=== PATIENT | male | born 1975 | race Caucasian/White ===

== ENCOUNTER 2019-03-17 13:33 | Emergency (ER) | payer OTHER ==
[2019-03-17 13:51] VITALS: BP 120/72; PULSE 86; TEMP 98; BMI 33.3
--- NOTE | 2019-03-17 14:50 | EKG ---
Test Reason : Blood Pressure : / mmHG Vent. Rate : 076 BPM Atrial Rate : 076 BPM P-R Int : 150 ms QRS Dur : 106 ms QT Int : 376 ms P-R-T Axes : 058 078 024 degrees QTc Int : 423 ms POOR DATA QUALITY, INTERPRETATION MAY BE ADVERSELY AFFECTED NORMAL SINUS RHYTHM NORMAL ECG NO PREVIOUS ECGS AVAILABLE Confirmed by SKYLER ARANGO MD ([id number]) on 03/17/2019 2:50:08 PM Referred By: Confirmed By:SKYLER ARANGO MD
[2019-03-17] MEDS ORDERED: ACETAMINOPHEN 325 MG TABLET (FP) PO ONE (16:46)
[2019-03-17] MEDS ORDERED: METHOCARBAMOL 750 MG TABLET PO ONE (17:00)
[2019-03-17] MEDS ORDERED: ACETAMINOPHEN 325 MG TABLET (FP) ONE (17:29)
[2019-03-17] MEDS ORDERED: METHOCARBAMOL 500 MG TABLET ONE (17:29)
[2019-03-17] MEDS ORDERED: METHOCARBAMOL 500 MG TABLET PO ONE (17:32)
[2019-03-17 17:59] LABS: BASO % 0.7 % (0-2.0); EOS % 3.5 % (0-4.5); HEMATOCRIT 43.1 % (35.4-49); HEMOGLOBIN 14.6 GM/dL (11.7-16.9); LYMPH % 32.7 % (8-40); MCH 30.4 pg (25.7-33.7); MEAN CELL VOLUME 89.4 fl (80-96); MEAN PLT VOLUME 7.4 fl (7.5-11.1); MONO % 6.9 % (3.8-10.2); NEUT % 56.2 % (42.8-82.8); PLATELET COUNT 246 K/MM3 (134-434); RBC 4.82 M/mm3 (4.00-5.60); RDW 13.1 % (11.9-15.9); WHITE BLOOD COUNT 6.7 K/mm3 (4.0-10.0)
[2019-03-17 18:20] LABS: ALBUMIN 3.8 g/dl (3.4-5.0); ALK PHOS 82 U/L (45-117); ANION GAP 5 MMOL/L (8-16); BILIRUBIN,TOTAL 0.6 mg/dL (0.2-1); BLOOD UREA NITROGEN 14.8 mg/dL (7-18); CALCIUM 8.8 mg/dL (8.5-10.1); CHLORIDE 107 mmol/L (98-107); CO2 28 mmol/L (21-32); CREATININE 1.2 mg/dL (0.55-1.3); GLUCOSE,RANDOM 142 mg/dL (74-106); POTASSIUM 4.1 mmol/L (3.5-5.1); SGOT/AST 16 U/L (15-37); SGPT/ALT 28 U/L (13-61); SODIUM 140 mmol/L (136-145); TOT PROT 6.5 g/dl (6.4-8.2)
--- NOTE | 2019-03-17 19:22 | PDOC ---
History of Present Illness - General Chief Complaint: Pain Stated Complaint: BACK PAIN / CHEST PAIN X1 MONTH Time Seen by Provider: 03/17/19 16:24 History Source: Patient Exam Limitations: No Limitations Past History - Past Medical History Allergies/Adverse Reactions: Allergies Allergy/AdvReac Type Severity Reaction Status Date / Time No Known Allergies Allergy Verified 03/17/19 13:50 Home Medications: Ambulatory Orders Methocarbamol [Robaxin -] 1,500 mg PO Q8H PRN #15 tablet 03/17/19 COPD: No - Suicide/Smoking/Psychosocial Hx Smoking History: Unknown if ever smoked Have you smoked in the past 12 months: No Number of Cigarettes Smoked Daily: 20 Information on smoking cessation initiated: No Hx Alcohol Use: No Drug/Substance Use Hx: No Substance Use Type: Marijuana *Physical Exam - Vital Signs Last Vital Signs Temp Pulse Resp BP Pulse Ox 98.0 F 86 16 120/72 100 03/17/19 13:48 03/17/19 13:48 03/17/19 13:48 03/17/19 13:48 03/17/19 13:48 - Physical Exam General Appearance: No: Apparent Distress Respiratory/Chest: positive: Lungs Clear, Normal Breath Sounds. negative: Respiratory Distress Cardiovascular: positive: Regular Rhythm, Regular Rate, S1, S2. negative: Murmur Gastrointestinal/Abdominal: positive: Normal Bowel Sounds, Soft. negative: Tender, Distended, Guarding, Rebound Musculoskeletal: positive: Other (+R lumbar paraspinal tenderness). negative: Vertebral Tenderness Extremity: negative: Pedal Edema, Swelling, Calf Tenderness Neurologic: positive: attendant honor bar II-XII NML intact, Fully Oriented, Alert, Normal Mood/ Affect, Motor Strength 5/5, Other (normal gait) Heart Score/ECG Review - History History: Slightly suspicious - Electrocardiogram EKG: Non specific repolarization disturbance - Age Age: </= 45 - Risk Factors Risk Factors Heart Score: Yes Smoking History Based on the list above the patient has:: 1-2 risk factors - Troponin Troponin: </= normal limit - Score Heart Score - Total: 2 ED Treatment Course - LABORATORY CBC & Chemistry Diagram: 03/17/19 17:30 03/17/19 17:30 - ADDITIONAL ORDERS Additional order review: Laboratory Results 03/17/19 17:30 Sodium 140 Potassium 4.1 Chloride 107 Carbon Dioxide 28 Anion Gap 5 L BUN 14.8 Creatinine 1.2 Est GFR (CKD-EPI)AfAm 84.73 Est GFR (CKD-EPI)NonAf 73.10 Random Glucose 142 H Calcium 8.8 Total Bilirubin 0.6 AST 16 ALT 28 Alkaline Phosphatase 82 Troponin I < 0.02 Total Protein 6.5 Albumin 3.8 03/17/19 17:30 RBC 4.82 MCV 89.4 MCHC 34.0 RDW 13.1 MPV 7.4 L Neutrophils % 56.2 Lymphocytes % 32.7 Monocytes % 6.9 Eosinophils % 3.5 Basophils % 0.7 - RADIOLOGY Radiology Studies Ordered: Category Date Time Status CHEST PA & LAT [RAD] Stat Radiology 03/17/19 16:46 Completed - Medications Given in the ED: ED Medications Discontinued Medications Generic Name Dose Route Start Last Admin Trade Name Ruddy PRN Reason Stop Dose Admin Acetaminophen 975 mg 03/17/19 16:46 03/17/19 17:34 Tylenol - PO 03/17/19 16:47 975 mg ONCE ONE Administration Methocarbamol 1,500 mg 03/17/19 17:00 03/17/19 17:34 Robaxin - PO 03/17/19 17:01 Not Given ONCE ONE Methocarbamol 1,000 mg 03/17/19 17:32 03/17/19 17:34 Robaxin - PO 03/17/19 17:33 1,000 mg ONCE ONE Administration Medical Decision Making - Medical Decision Making 43 y/o M with hx of degenerative disc disease of lumbar spine (dx around 3 years ago) presents with acute on chronic nonradiating lower back pain for the past few days. States he used to go to a back doctor but doesn't like him so is searching for someone else; also is looking for a different PCP. 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 Denies recent trauma. Has tried OTC lidocaine patch and Motrin which does not help much. Also has complaint of intermittent nonradiating L sided chest tightness relieved with belching, usually worse with food. CP is nonexertional. Denies fever, URI sxs, abd pain, n/v/d, urinary complaints, numbness/tingling/weakness of extremities, saddle/groin paresthesia, bowel/bladder incontinence. +smoker 0.5-1 ppd x 34 years. Denies drug or alcohol use. Unsure of FH as adopted Acute on chronic back pain - Likely MSK in nature; given Tylenol and Robaxin here CP x 1month: EKG: NSR at 76 bpm, TWI lead III (no prior to compare to) Currently not experiencing any chest discomfort Heart score of 2 Unlikely ACS Possible GERD Stable for D/C Given card for PCP center 03/17/19 19:15 *DC/Admit/Observation/Transfer Diagnosis at time of Disposition: Chronic lower back pain Qualifiers: Back pain laterality: right Sciatica presence: without sciatica Qualified Code( s): M54.5 - Low back pain; G89.29 - Other chronic pain Chest pain Qualifiers: Chest pain type: unspecified Qualified Code(s): R07.9 - Chest pain, unspecified - Discharge Dispostion Disposition: HOME Condition at time of disposition: Stable Decision to Admit order: No - Prescriptions Prescriptions: Methocarbamol [Robaxin -] 1,500 mg PO Q8H PRN #15 tablet PRN Reason: Muscle Spasms - Referrals Referrals: Parviz Wilson MD [Staff Physician] - Blaire Angulo [Primary Care Provider] - 2 Days - Patient Instructions Printed Discharge Instructions: DI for Chest Pain, DI for Low Back Pain Additional Instructions: Thank you for choosing [facility]. It was a pleasure taking care of you. You may take Motrin 600 mg every 6 hours by mouth as needed for mild to moderate pain. Take Motrin with food. Take Robaxin as needed for muscle spasms. This medication can also make you drowsy so please be cautious with driving or performing heavy physical work. Recommend warm compresses and follow-up with physical therapy Follow-up in primary center for further evaluation Return to the Emergency Department if your symptoms worsen or persist, you have fever, shortness of breath, chest pain, severe abdominal pain, vomiting, weakness of extremities (arms and/or legs), changes in vision or walking, unable to control bowel or bladder movements or other concerning symptoms. - Post Discharge Activity
== END 2019-03-17 19:39 | disposition home or self-care (01) ==
LOC: JER 13:33
DX: M54.5 Low back pain (principal); G89.29 Other chronic pain; R07.9 Chest pain, unspecified; M19.90 Unspecified osteoarthritis, unspecified site; Z87.891 Personal history of nicotine dependence
CPT/HCPCS: 36415; 71046-TC-FY; 80053; 84484; 85025; 93005; 93010; 99282-25

== ENCOUNTER 2019-03-22 16:41 | Emergency (ER) | payer OTHER ==
[2019-03-22 17:32] VITALS: BP 122/74; PULSE 71; TEMP 98.3; BMI 33.3
[2019-03-22] MEDS ORDERED: KETOROLAC TROMETHAMINE 60 MG/2 ML VIAL IM ONE (17:33)
--- NOTE | 2019-03-22 17:33 | PDOC ---
Rapid Medical Evaluation Chief Complaint: Chronic pain Time Seen by Provider: 03/22/19 17:29 Medical Evaluation: Allergies Allergy/AdvReac Type Severity Reaction Status Date / Time No Known Allergies Allergy Verified 03/22/19 17:29 03/22/19 17:31 I have performed a brief in-person evaluation of this patient. The patient presents with a chief complaint of: h/o chronic back pain presenting with right lower back pain which has not been improving with ibuprofen and flexiril. Pt seen 5 days ago for same symptoms. report right lower back pain which is worse with ambulation Pertinent physical exam findings: A&O x 3 I have ordered the following: Toradol 60mh IM The patient will proceed to the ED for further evaluation Discharge Disposition - Diagnosis Chronic lower back pain Qualifiers: Back pain laterality: right Sciatica presence: without sciatica Qualified Code( s): M54.5 - Low back pain - Discharge Dispostion Condition at time of disposition: Stable - Referrals - Patient Instructions - Post Discharge Activity
[2019-03-22] MEDS ORDERED: KETOROLAC TROMETHAMINE 60 MG/2 ML VIAL ONE (17:38)
--- NOTE | 2019-03-22 18:12 | PDOC ---
History of Present Illness - General Chief Complaint: Chronic pain Stated Complaint: L/BACK PAIN Time Seen by Provider: 03/22/19 17:29 - History of Present Illness Initial Comments: 03/22/19 18:11 CHIEF COMPLAINT: low back pain HISTORY OF PRESENT ILLNESS: 43 yo M with hx of degenerative disc disease and sciatica presents to fast track with low back pain radiating to leg x 5 days. Patient reports he is followed by ortho in the [place] but was told to "do physical therapy and stop smoking and that would make me better, but I've had excruciating pain like never before and it's not going away." Patient reports he has taken all of his flexeril that was prescribed to him w/o relief. 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 No recent travel or sick contacts. PAST MEDICAL HISTORY: degenerative disc disease, sciatica FAMILY HISTORY: Denies SOCIAL HISTORY: Denies tobacco, alcohol, illicit drug use. SURGICAL HISTORY: Denies ALLERGIES: No known drug allergies REVIEW OF SYSTEMS General/Constitutional: Denies fever or chills. Denies weakness, weight change. HEENT: Denies change in vision. Denies ear pain or discharge. Denies sore throat. Cardiovascular: Denies chest pain or shortness of breath. Respiratory: Denies cough, wheezing, or hemoptysis. Gastrointestinal: Denies nausea, vomiting, diarrhea or constipation. Denies rectal bleeding. Genitourinary: Denies dysuria, frequency, or change in urination. Musculoskeletal: Low back pain x 5 days. Skin and breasts: Denies rash or easy bruising. Neurologic: Denies headache, vertigo, loss of consciousness, or loss of sensation. PHYSICAL EXAM General Appearance: Well-appearing, appropriately dressed. No apparent distress. HEENT: EOMI, PERRLA, normal ENT inspection, normal voice, TMs normal, pharynx normal. No conjunctival pallor. No photophobia, scleral icterus. Neck: Supple. Trachea midline. No tenderness, rigidity, carotid bruit, stridor , lymphadenopathy, or thyromegaly. Respiratory/Chest: Lungs CTAB. No shortness of breath, chest tenderness, respiratory distress, accessory muscle use. No crackles, rales, rhonchi, stridor , wheezing, dullness Cardiovascular: RRR. S1, S2. No JVD, murmur, bradycardia, tachycardia. Vascular Pulses: Dorsalis-Pedis (R): 2+, Dorsalis-Pedis (L): 2+ Gastrointestinal/Abdominal: Normal bowel sounds. Abdomen soft, non-distended. No tenderness or rebound tenderness. No organomegaly, pulsatile mass, guarding , hernia, hepatomegaly, splenomegaly. Lymphatic: No adenopathy, tenderness. Musculoskeletal/Extremities: Tenderness to R paravertebral muscle over L4-L5. No loss of sensation to b/l legs, no saddles anesthia. Full ambulatory. Normal inspection. FROM of all extremities, normal capillary refill. Pelvis Stable. No CVA tenderness. No tenderness to extremities, pedal edema, swelling , erythema or deformity. Integumentary: Appropriate color, dry, warm. 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 Fully oriented, alert. Appropriate mood/affect. Motor strength 5/5. No appreciable EOM palsy, facial droop or sensory deficit. Past History - Past Medical History Allergies/Adverse Reactions: Allergies Allergy/AdvReac Type Severity Reaction Status Date / Time No Known Allergies Allergy Verified 03/22/19 17:29 Home Medications: Ambulatory Orders Cyclobenzaprine HCl [Flexeril 10 mg] 10 mg PO TID PRN #21 tablet 03/17/19 Diclofenac Sodium 75 mg PO BID #30 tablet. 03/22/19 Ibuprofen [Ibu] 800 mg PO TID PRN 03/22/19 Metaxalone [Skelaxin] 800 mg PO QID #60 tablet 03/22/19 COPD: No - Suicide/Smoking/Psychosocial Hx Smoking History: Unknown if ever smoked Have you smoked in the past 12 months: No Number of Cigarettes Smoked Daily: 20 Hx Alcohol Use: No Drug/Substance Use Hx: No Substance Use Type: Marijuana Trauma Specific PMHX - Complaint Specific PMHX Back Injury: No Neck Injury: No *Physical Exam - Vital Signs Last Vital Signs Temp Pulse Resp BP Pulse Ox 98.3 F 71 18 122/74 99 03/22/19 17:29 03/22/19 17:29 03/22/19 17:29 03/22/19 17:29 03/22/19 17:29 ED Treatment Course - Medications Given in the ED: ED Medications Discontinued Medications Generic Name Dose Route Start Last Admin Trade Name Freq PRN Reason Stop Dose Admin Ketorolac Tromethamine 60 mg 03/22/19 17:33 03/22/19 18:02 Toradol Injection - IM 03/22/19 17:34 60 mg ONCE ONE Administration *DC/Admit/Observation/Transfer Diagnosis at time of Disposition: Chronic lower back pain Qualifiers: Back pain laterality: right Sciatica presence: without sciatica Qualified Code( s): M54.5 - Low back pain Low back pain Qualifiers: Chronicity: acute Back pain laterality: right Sciatica presence: with sciatica Sciatica laterality: sciatica of right side Qualified Code(s): M54.41 - Lumbago with sciatica, right side - Discharge Dispostion Disposition: HOME Condition at time of disposition: Stable - Prescriptions Prescriptions: Diclofenac Sodium 75 mg PO BID #30 tablet. Metaxalone [Skelaxin] 800 mg PO QID #60 tablet - Referrals Referrals: Parviz Wilson MD [Primary Care Provider] - Marco Floyd DO [Staff Physician] - Oh Ellison MD [Staff Physician] - - Patient Instructions Printed Discharge Instructions: Managing Chronic Low Back Pain, DI for Low Back Pain - Post Discharge Activity Forms/Work/School Notes: Back to Work
== END 2019-03-22 18:26 | disposition home or self-care (01) ==
LOC: JERFT 16:41 → JER 16:41 → JERFT 18:26
PROC: 3E0233Z Introduction of Anti-inflammatory into Muscle, Percutaneous Approach (ICD-10-PCS; principal; 2019-03-22)
DX: M54.41 Lumbago with sciatica, right side (principal)
CPT/HCPCS: 96372; 99281-25

== ENCOUNTER 2019-10-27 11:48 | Emergency (ER) | payer OTHER ==
[2019-10-27 12:09] VITALS: BP 103/75; PULSE 76; TEMP 98.3; BMI 32.3
--- NOTE | 2019-10-27 12:34 | PDOC ---
History of Present Illness - General Chief Complaint: Cold Symptoms Stated Complaint: Cold Symptoms Time Seen by Provider: 10/27/19 12:13 - History of Present Illness Initial Comments: 10/27/19 12:33 44-year-old male without comorbidities presents for sinus pressure congestion and cough x3 weeks without systemic symptoms Past History - Past Medical History Allergies/Adverse Reactions: Allergies Allergy/AdvReac Type Severity Reaction Status Date / Time No Known Allergies Allergy Verified 10/27/19 12:09 Home Medications: Ambulatory Orders Cyclobenzaprine HCl [Flexeril 10 mg] 10 mg PO TID PRN #21 tablet 03/17/19 Diclofenac Sodium 75 mg PO BID #30 tablet. 03/22/19 Diclofenac Sodium [Voltaren -] 75 mg PO BID #30 tablet. 03/22/19 Ibuprofen [Ibu] 800 mg PO TID PRN 03/22/19 Metaxalone [Skelaxin] 800 mg PO QID #60 tablet 03/22/19 Metaxalone [Skelaxin] 800 mg PO QID #60 tablet 03/22/19 Amox-Tr/K Cl [Augmentin - 875Mg Tablet] 1 tab PO BID #20 tablet 10/27/19 Budesonide [Rhinocort Allergy] 1 spray NS ONCE #1 spray.pump 10/27/19 COPD: No - Psycho Social/Smoking Cessation Hx Smoking History: Current every day smoker Have you smoked in the past 12 months: No Number of Cigarettes Smoked Daily: 10 Information on smoking cessation initiated: No Hx Alcohol Use: No Drug/Substance Use Hx: No Substance Use Type: Marijuana Review of Systems - Review of Systems Constitutional: No: Fever HEENTM: Yes: Nose Pain, Nose Congestion Respiratory: Yes: Cough *Physical Exam - Vital Signs Last Vital Signs Temp Pulse Resp BP Pulse Ox 98.3 F 76 16 103/75 97 10/27/19 12:06 10/27/19 12:06 10/27/19 12:06 10/27/19 12:06 10/27/19 12:06 - Physical Exam 10/27/19 12:33 GENERAL: The patient is awake, alert, and fully oriented, in no acute distress. HEAD: Normal with no signs of trauma. EYES: sclera anicteric, conjunctiva clear. ENT: Ears normal tympanic membranes normal oropharynx clear uvula midline; tender frontal maxillary sinuses NECK: Normal range of motion LUNGS: Breath sounds equal, clear to auscultation bilaterally. No wheezes, and no crackles. HEART: S1 and S2 without murmur, rub or gallop. ABDOMEN: Soft, nontender, normoactive bowel sounds. No guarding, no rebound. No masses. EXTREMITIES: Normal range of motion, no edema. No clubbing or cyanosis. No cords, erythema, or tenderness. NEUROLOGICAL: Cranial nerves II through XII grossly intact. PSYCH: Normal mood, normal affect. SKIN: Warm, Dry, normal turgor, no rashes or lesions noted. Medical Decision Making - Medical Decision Making 10/27/19 12:33 We will treat for bacterial sinusitis based on history Discharge - Discharge Information Problems reviewed: Yes Clinical Impression/Diagnosis: Sinusitis Condition: Stable Disposition: HOME - Admission No - Additional Discharge Information Prescriptions: Amox-Tr/K Cl [Augmentin - 875Mg Tablet] 1 tab PO BID #20 tablet Budesonide [Rhinocort Allergy] 1 spray NS ONCE #1 spray.pump - Follow up/Referral Referrals: Michael Hernandez MD [Staff Physician] - - Patient Discharge Instructions Additional Instructions: Please take the antibiotics and use the nasal spray as directed. You must finish the entire course. Return to the emergency room for worsening symptoms and without fail follow-up with ear nose and throat in 1 to 2 days for further evaluation and treatment options. Tylenol Motrin any fevers or discomfort - Post Discharge Activity
== END 2019-10-27 12:43 | disposition home or self-care (01) ==
LOC: JERFT 11:48
DX: J32.9 Chronic sinusitis, unspecified (principal); F17.210 Nicotine dependence, cigarettes, uncomplicated
CPT/HCPCS: 99283-25